=== PATIENT | female | born 1985 | race Caucasian/White ===

== ENCOUNTER 2019-09-30 04:04 | Outpatient (CLI) | payer BC ==
[2019-09-30 04:35] LABS: APPEARANCE,URINE CLEAR; BILIRUBIN,URINE NEGATIVE (NEGATIVE); COLOR,URINE YELLOW; GLUCOSE, URINE NEGATIVE (NEGATIVE); KETONES,URINE NEGATIVE (NEGATIVE); LEUKOCYTE ESTERASE,URINE SMALL (NEGATIVE); NITRITE,URINE NEGATIVE (NEGATIVE); PROTEIN,URINE NEGATIVE (NEGATIVE); URINE SPECIFIC GRAVITY 1.008; UROBILINOGEN,URINE NEGATIVE mg/dL (<2.0)
[2019-09-30 04:50] LABS: URINE AMPHETAMINES SCREEN NEGATIVE; URINE BARBITURATES SCREEN NEGATIVE; URINE BENZODIAZEPINES SCREEN NEGATIVE; URINE COCAINE SCREEN NEGATIVE; URINE MARIJUANA (THC) SCREEN NEGATIVE; URINE METHADONE SCREEN NEGATIVE; URINE PHENCYCLIDINE SCREEN NEGATIVE
--- NOTE | 2019-09-30 06:31 | Non Stress Test Report ---
Non Stress Test Datetime Report Generated by CPN: 09/30/2019 06:31 DEMOGRAPHIC EGA NST: 40.4 INDICATION Indication for Study (NST) Other: LC- ctx MONITORING Monitor Explained: Monitor Explained; Test Explained; Patient Verbalized Understanding Time on Monitor: 09/30/2019 04:20 Time off Monitor: 09/30/2019 04:52 NST Duration: 32 NST INTERVENTIONS NST Interventions: PO Hydration; Reposition Patient Physician Notified NST: Dr. De La Vega BABY A: [id number] BABY A Movement : Present Contraction Frequency : irregular FHR Baseline : 125 Accelerations : 15X15 Decelerations : None Variability : Moderate 6-25bpm NST Review: Meets Criteria for Reactive NST NST Review and Verified By : BRYCE Santiago Results: Reactive NST REPORT Report Trigger: Send Report
[2019-09-30] MEDS ORDERED: LIDOCAINE 1% INJ-PF (10 MG/ML) 30 ML SDV ONE (11:08)
[2019-09-30] MEDS ORDERED: OXYTOCIN 10 UNIT/ML VIAL ONE (11:08)
[2019-09-30] MEDS ORDERED: MISOPROSTOL 0.2 MG TABLET ONE (11:08)
[2019-09-30] MEDS ORDERED: OXYTOCIN/NORMAL SALINE 20 UNIT/1,000 ML RTUINJ ONE (11:09)
== END 2019-09-30 06:34 | disposition home or self-care (01) ==
LOC: LC 04:04
PROVIDERS: ATTEND Obstetrics & Gynecology Gynecology
PROC: 4A1HXCZ Monitoring of Products of Conception, Cardiac Rate, External Approach (ICD-10-PCS; principal; 2019-09-30)
DX: O48.0 Post-term pregnancy (principal); Z3A.40 40 weeks gestation of pregnancy
CPT/HCPCS: 59025; 81005; 80307; J3490; J2590 ×2

== ENCOUNTER 2019-09-30 10:50 | Inpatient (IN) | payer BC ==
--- NOTE | 2019-09-30 11:13 | Admission Physical ---
Datetime Report Generated by CPN: 09/30/2019 11:12 CURRENT ADMISSION Chief Complaint: Uterine Contractions Chief Complaint Other: contractions since 129 Indication for Induction: Not Applicable Admit Impression : Term, Intrauterine ; Active Labor Admit Plan: Admit to Unit; Initiate Labor Protocol Admit Plan- Other: was discharged this morning before 0700 with 2cm cx ALLERGIES Medication Allergies: No Medication Allergies: No Known Allergies (09/30/2019) Latex: No Latex Allergies Food Allergies: pineapple, melon OBSTETRICAL HISTORY EDC: 09/26/2019 00:00 : 1 Para: 0 Term: 0 : 0 SAB: 0 IAB: 0 Ectopic: 0 Livin Cesareans: 0 VBACs: 0 Multiple Births: 0 SEE RECORDS Alcohol: No Marijuana : No Cocaine: No Other Illicit Drugs: No Cigarettes: Never Smoker. [id number] PHYSICAL EXAM General: Normal HEENT: Normal Neurologic: Normal Thyroid: Deferred Heart: Normal Lungs: Normal Breast: Deferred Back: Normal Abdomen: Normal Genitourinary Exam: Normal Extremities: Normal DTRs: Normal Pelvic Type: Adequate Vital Signs: Reviewed; Within Normal Limits VAGINAL EXAM Dilatation: 6 Effacement: 100 Station: -1 Contraction Comments: q 2-3 mins MEMBRANES Pooling: Negative Membranes: Intact FETUS A EGA: 40.4 Monitoring: External US FHR- Baseline: 140 Accelerations: 15X15 Decelerations: None Estimated Weight (gm): 3300 Presentation: Vertex Presentation- Other: vtx by SVE Admit Comment: at 40w4d in active labor. P: admit to L_D, anticipate PLANS FOR LABOR AND DELIVERY Pain Management: Medications; Epidural Feeding Preference: Breast Benefit of Breast Feed Discussed: Yes Circumcision: N/A INFORMED CONSENT Assignment: Ronda Delgado MD Signature: with User ID: [email or web address] : with User ID: [email or web address]
[2019-09-30] MEDS ORDERED: RINGERS SOLUTION,LACTATED 1,000 ML IV ONE (11:14)
[2019-09-30 11:50] LABS: ABSOLUTE LYMPHOCYTES (AUTO) 0.9 10^3/uL (0.5-4.7); ABSOLUTE MONOCYTES (AUTO) 0.4 10^3/uL (0.1-1.4); ABSOLUTE NEUT (AUTO) 15.3 10^3/uL (1.7-8.2); BASOPHILS % (AUTO) 0.2 % (0-2); HEMATOCRIT 33.1 % (36.0-47.0); HEMOGLOBIN 11.6 g/dL (12.0-15.5); LYMPHOCYTES % (AUTO) 5.5 % (13-45); MEAN CORPUSCULAR HEMOGLOBIN 29.4 pg (27.0-33.4); MEAN CORPUSCULAR HGB CONC 34.9 g/dL (32.0-36.0); MEAN CORPUSCULAR VOLUME 84 fl (80-97); MONOCYTES % (AUTO) 2.3 % (3-13); PLATELET COUNT 331 10^3/uL (150-450); RED BLOOD COUNT 3.93 10^6/uL (3.72-5.28); RED CELL DISTRIBUTION WIDTH 13.9 % (11.5-14.0); TOTAL CELLS COUNTED % (AUTO) 100 %; WHITE BLOOD COUNT 16.6 10^3/uL (4.0-10.5)
[2019-09-30] MEDS ORDERED: PHENYLEPHRINE HCL INJ/PF 10 MG/1 ML SDV ONE ×2 (12:08→22:30)
[2019-09-30] MEDS ORDERED: FENTANYL CITRATE INJ/PF 100 MCG/2 ML AMPUL ONE ×3 (12:09→23:14)
[2019-09-30] MEDS ORDERED: BUPIVACAINE HCL 0.25 % INJ/PF (2.5 MG/1 ML) 30 ML VIAL ONE (12:09)
[2019-09-30] MEDS ORDERED: FENTANYL/BUPIVACAINE/NS/PF 300 MCG/150 ML RTUINJ EPI ONE (12:09)
[2019-09-30] MEDS ORDERED: EPHEDRINE SULFATE INJ 50 MG/1 ML AMPULE ONE (12:09)
--- NOTE | 2019-09-30 14:32 | Warning Signs in Babies ---
VOD Warning Signs Datetime Report Generated by [facility]: 09/30/2019 14:32 VOD#608 -Warning Signs in Babies: Viewed with Parent(s)/Family (09/30/2019 14:30:Nikolai Sepulveda RN)
[2019-09-30] MEDS: RINGERS SOLUTION,LACTATED 1,000 ML IV PRN (18:03)
[2019-09-30] MEDS ORDERED: CEFTRIAXONE INJ 1000 MG VIAL ONE (20:06)
[2019-09-30] MEDS ORDERED: OXYTOCIN/NORMAL SALINE 20 UNIT/1,000 ML RTUINJ IV PRN ×2 (20:58→23:55)
[2019-09-30] MEDS ORDERED: AMPICILLIN SOD INJ 2 GM VIAL IV ONE (21:15)
[2019-09-30] MEDS ORDERED: ACETAMINOPHEN 325 MG TABLET PO ONE (21:16)
[2019-09-30] MEDS ORDERED: SODIUM BICARBONATE 4.2% INJ (2.5 MEQ/5 ML) VIAL ONE (22:22)
[2019-09-30] MEDS ORDERED: LIDOCAINE 2% INJ-PF (20 MG/ML) 10 ML AMPUL ONE (22:22)
[2019-09-30] MEDS ORDERED: AZITHROMYCIN INJ 500 MG VIAL IV ONE ×2 (22:23→22:25)
[2019-09-30] MEDS ORDERED: CITRIC ACID/SODIUM CITRATE ORAL SOLN 15 ML UDCUP ONE (22:23)
[2019-09-30] MEDS ORDERED: CITRIC ACID/SODIUM CITRATE ORAL SOLN 15 ML UDCUP PO ONE (22:25)
[2019-09-30] MEDS ORDERED: OXYTOCIN 10 UNIT/ML VIAL ONE (22:30)
[2019-09-30] MEDS ORDERED: MIDAZOLAM 2 MG/2 ML INJ ONE (22:30)
[2019-09-30] MEDS ORDERED: ONDANSETRON HCL INJ/PF 4 MG/2 ML SDV ONE (22:30)
[2019-09-30] MEDS ORDERED: PROPOFOL INJ 200 MG/20 ML VIAL IV ONE (23:20)
[2019-09-30] MEDS ORDERED: OXYTOCIN/NORMAL SALINE 20 UNIT/1,000 ML RTUINJ ONE (23:50)
--- NOTE | 2019-09-30 23:51 | Warning Signs in Babies ---
VOD Warning Signs Datetime Report Generated by N: 09/30/2019 23:50 VOD#608 -Warning Signs in Babies: Viewed with Parent(s)/Family (09/30/2019 23:45:Sarah Villarreal RN)
[2019-09-30] MEDS ORDERED: OXYCODONE-ACETAMINOPHEN 5-325 MG TABLET PO PRN (23:55)
[2019-09-30] MEDS ORDERED: ACETAMINOPHEN 325 MG TABLET PO PRN (23:55)
[2019-09-30] MEDS ORDERED: HYDROMORPHONE HCL INJ/PF 2 MG/ML AMPULE IV PRN (23:55)
[2019-09-30] MEDS ORDERED: MEASLES,MUMPS&RUBELLA VACC/PF 0.5 ML VIAL SUBCUT PRN (23:55)
[2019-09-30] MEDS ORDERED: PROMETHAZINE HCL INJ 25 MG/1 ML VIAL IV PRN (23:55)
[2019-09-30] MEDS ORDERED: DIPH/PERTUSS(ACELL)/TETANUS VAC/PF 0.5 ML SYR (>=10YO) IM PRN (23:55)
[2019-09-30] MEDS ORDERED: ACETAMINOPHEN 1,000 MG/100 ML RTUPB IV PRN (23:55)
[2019-10-01] MEDS ORDERED: FENTANYL CITRATE INJ/PF 100 MCG/2 ML AMPUL ONE (00:23)
[2019-10-01] MEDS ORDERED: KETOROLAC TROMETHAMINE INJ/PF 30 MG/1 ML SDV IV ONE (00:30)
[2019-10-01] MEDS ORDERED: KETOROLAC TROMETHAMINE INJ/PF 30 MG/1 ML SDV ONE (00:42)
[2019-10-01] MEDS ORDERED: ACETAMINOPHEN 1,000 MG/100 ML RTUPB IV ONE (00:49)
[2019-10-01] MEDS: OXYCODONE-ACETAMINOPHEN 5-325 MG TABLET PO PRN ×4 (02:41→21:31)
[2019-10-01] MEDS: KETOROLAC TROMETHAMINE INJ/PF 30 MG/1 ML SDV IV SCH ×3 (05:44→21:31)
[2019-10-01] MEDS: PRENATAL VITAMIN W DHA CAPSULE PO SCH (09:50)
[2019-10-01] MEDS: DOCUSATE SODIUM 100 MG CAPSULE PO SCH ×2 (09:50→17:30)
[2019-10-01] MEDS: SIMETHICONE 80 MG TAB.CHEW PO PRN ×2 (09:50→20:44)
[2019-10-01] MEDS: RINGERS SOLUTION,LACTATED 1,000 ML IV PRN ×2 (09:54→19:22)
--- NOTE | 2019-10-01 10:01 | Operative Report ---
Operative Report DATE OF SURGERY: 09/30/19 PREOPERATIVE DIAGNOSIS: Arrest of descent. Failure to progress in labor. Chor ioamnionitis. Cat 2 heart tracing POSTOPERATIVE DIAGNOSIS: Same as above. Occipute posterior OPERATION: Primary section SURGEON: VANNESA EDGE ANESTHESIA: Spinal TISSUE REMOVED OR ALTERED: Placenta COMPLICATIONS: None ESTIMATED BLOOD LOSS: 700 INTRAOPERATIVE FINDINGS: Uterus with two small fibroids less then 3 cm each. Bilateral fallopian tubes and ovaries apperar normal. Large amount of thick meconium stained fluid. presentation is occiput posterior. Viable female infant. Nuchal cord x 2. PROCEDURE: IV fluids: per anesthesia record Urinary output: 300 cc Findings: Uterus with two fibroids each less than 3 cm. Normal bilateral fallopian tubes and ovaries. Viable female Position: To recovery room in stable condition Description of procedure: The patient was taken to the operating room and general anesthesia was administered and found to be adequate. She was then placed on the OR table in the supine position with a slight leftward tilt. Patient was prepped and draped in usual sterile fashion. Azithromycin 500mg was given IV prior to the procedure for infection prophylaxis . Timeout was taken. A Pfannenstiel skin incision was then made approximately 3 cm above the pubic symphysis and carried down to level the rectus fascia. The rectus fascia was then nicked in the midline with a scalpel and the fascial incision was extended laterally with use of curved Apodaca scissors. The rectus fascia was then grasped with 2 Kocker clamps elevated and the underlying rectus muscle was dissected off both bluntly and sharply. Any bleeding controlled with cautery. The rectus muscles were then split in the midline and the peritoneum was entered. The peritoneal incision was then extended by manually stretching the peritoneum. The bladder blade was positioned. The bladder was noted to be out of harm's way. A scalpel was then used in the lower uterine for the hysterotomy, slowly until amniotomy was obtained a large amount of meconium stained fluid was noted. The uterine incision was then manually stretched. The infant was noted to be in vertex postion -deep in the pelvis. Using a hand deep in pelvis, the head was elevated and brought to the hysterotomy incision. The head then delivered with some difficulty as infant was occiput posterior presentation deep in the pelvis. An assistant news director used a single hand to assist with elevation of the head from the pelvis from below the drape. Once the head was brought to the hysterotomy incision it delivered easily.. The shoulders and the rest of the body followed immediately. The cord was cut clamped and the infant was handed off to the nurse awaiting. Infant was crying prior to hand off. The placenta was manually delivered. Using a lap gauze the uterus was cleared of all clots and debris. The uterus was then exteriorized and a bladder blade was repositioned. The uterine incision was then closed with 0 Chromic suture in a running locked fashion. A second layer of the same suture was used in a running locked imbricated fashion. The uterine incision was inspected and noted to be hemostatic. The posterior aspect of the uterus was then inspected and anatomy was seen as above. The uterus was returned to its normal anatomic position within the abdominal cavity. Warm saline irrigation was used to clear all clots and debris from the abdomen. The uterine incision was inspected once more and noted to remain hemostatic. The bladder blade was removed and the peritoneum was closed with 2-0 chromic in a running fashion. The rectus muscles were then reapproximated and the rectus fascia was closed with a #1 PDS in a running fashion. The subcutaneous tissue was then inspected and any bleeding was controlled with Bovie electrocautery. The subcutaneous tissue was then closed with 2-0 Plain Gut suture in a running fashion. The skin was then closed with 4-0 Monocryl in a running subcuticular fashion. The skin incision was then clean dried and Dermabond was applied over the skin incision. All instrument sponge and needle counts were correct x3 for the procedure the patient tolerated the procedure well. She will proceed to recovery room in stable condition
--- NOTE | 2019-10-01 10:14 | PDOC PROGRESS REPORT ---
Subjective-OB Progress Note for:: 10/01/19 Subjective: reports bleeding slowing, pain controlled with current meds, denies needs. not passing gas Physical Exam (OB) Vital Signs: Temp Pulse Resp BP Pulse Ox 98.3 F 73 16 94/42 L 95 10/01/19 08:05 10/01/19 08:05 10/01/19 08:05 10/01/19 08:05 10/01/19 08:05 Intake & Output 09/30/19 10/01/19 10/02/19 06:59 06:59 06:59 Intake Total 1270 Balance 1270 Weight 98.3 kg - Incision: Open, Well Approximated Closure Type: Surgical Glue - Abdomen Description: Tender, Soft Hernia Present: No Bowel Sounds: Hypoactive Fundal Description: Firm, Midline Fundal Height: u/u - u/2 - Extremities Lower extremities: Rosalba's sign - neg Calf: Normal, Nontender Objective-Diagnostic Laboratory: 09/30/19 11:32 09/30/19 09/30/19 11:32 11:32 WBC 16.6 H RBC 3.93 Hgb 11.6 L Hct 33.1 L MCV 84 MCH 29.4 MCHC 34.9 RDW 13.9 Plt Count 331 Seg Neutrophils % 92.0 H Blood Type B POSITIVE Antibody Screen NEGATIVE Assessment and Plan(PN) - Assessment and Plan (1) Active labor at term Is this a current diagnosis for this admission?: Yes (2) Arrest of descent, delivered, current hospitalization Is this a current diagnosis for this admission?: Yes (3) S/P primary low transverse Is this a current diagnosis for this admission?: Yes - Time Spent with Patient Time with patient: Less than 15 minutes - Disposition Anticipated Discharge: Home Within: within 48 hours
[2019-10-01 10:26] LABS: HEMATOCRIT 28.9 % (36.0-47.0); HEMOGLOBIN 9.7 g/dL (12.0-15.5); MEAN CORPUSCULAR HGB CONC 33.8 g/dL (32.0-36.0); MEAN CORPUSCULAR VOLUME 86 fl (80-97); PLATELET COUNT 255 10^3/uL (150-450); RED BLOOD COUNT 3.36 10^6/uL (3.72-5.28); RED CELL DISTRIBUTION WIDTH 14.7 % (11.5-14.0); WHITE BLOOD COUNT 21.9 10^3/uL (4.0-10.5)
[2019-10-01 10:51] LABS: ABSOLUTE LYMPHOCYTES# (MANUAL) 2.2 10^3/uL (0.5-4.7); ABSOLUTE MONOCYTES # (MANUAL) 1.1 10^3/uL (0.1-1.4); ANISOCYTOSIS SLIGHT; BAND NEUTROPHILS % (MANUAL) 2 % (3-5); BASOPHILS % (MANUAL) 0 % (0-2); EOSINOPHILS % (MANUAL) 0 % (0-6); LYMPHOCYTES % (MANUAL) 10 % (13-45); MONOCYTES % (MANUAL) 5 % (3-13); PLATELET COMMENT ADEQUATE; POIKILOCYTOSIS SLIGHT; SEGMENTED NEUTROPHILS % (MAN) 83 % (42-78); TEAR DROP CELLS SLIGHT; TOTAL CELLS COUNTED 100; TOXIC GRANULATION SLIGHT
[2019-10-01] MEDS ORDERED: AMPICILLIN SOD INJ 2 GM VIAL IV SCH (12:15)
[2019-10-01] MEDS: AMPICILLIN SOD INJ 2 GM VIAL IM SCH (12:48)
[2019-10-01] MEDS: AMPICILLIN SODIUM 2 GM in NORMAL SALINE 100 ML IV SCH ×2 (17:49→23:12)
[2019-10-02] MEDS: IBUPROFEN 800 MG TABLET PO PRN ×2 (05:24→14:20)
[2019-10-02 08:08] LABS: HEMATOCRIT 27.3 % (36.0-47.0); HEMOGLOBIN 9.3 g/dL (12.0-15.5); MEAN CORPUSCULAR HEMOGLOBIN 29.3 pg (27.0-33.4); MEAN CORPUSCULAR HGB CONC 34.2 g/dL (32.0-36.0); MEAN CORPUSCULAR VOLUME 86 fl (80-97); PLATELET COUNT 283 10^3/uL (150-450); RED BLOOD COUNT 3.19 10^6/uL (3.72-5.28); RED CELL DISTRIBUTION WIDTH 14.6 % (11.5-14.0); WHITE BLOOD COUNT 15.3 10^3/uL (4.0-10.5)
--- NOTE | 2019-10-02 10:04 | PDOC DISCHARGE SUMMARY ---
Impression - Admit/DC Date/PCP Admission Date/Primary Care Provider: 09/30/19 11:14 JACK PETTIT MD Discharge Date: 10/02/19 - Discharge Diagnosis (1) Active labor at term Is this a current diagnosis for this admission?: Yes (2) Arrest of descent, delivered, current hospitalization Is this a current diagnosis for this admission?: Yes (3) S/P primary low transverse Is this a current diagnosis for this admission?: Yes - Additional Information Discharge Diet: Regular Discharge Activity: Balance Activity w/Rest, No Lifting Over 10 Pounds, No Lifting/Push/Pulling, Pelvic Rest, No tub bath Referrals: JACK PETTIT MD [Primary Care Provider] - Prescriptions: Norethindrone [Deblitane] 0.35 mg PO DAILY #90 tablet Ibuprofen [Motrin 800 mg Tablet] 800 mg PO Q8HP PRN #60 tablet PRN Reason: Oxycodone HCl/Acetaminophen [Percocet 5-325 mg Tablet] 1 tab PO Q4HP PRN #30 tablet PRN Reason: Home Medications: Prenat 115/Iron Fum/Folic/Dss [ 19 Tablet] 1 tab PO DAILY 09/30/19 Ibuprofen [Motrin 800 mg Tablet] 800 mg PO Q8HP PRN #60 tablet 10/02/19 Norethindrone [Deblitane] 0.35 mg PO DAILY #90 tablet 10/02/19 Oxycodone HCl/Acetaminophen [Percocet 5-325 mg Tablet] 1 tab PO Q4HP PRN #30 tablet 10/02/19 HPI Gestational Age: 40+4 Reason(s) for Admission: Onset of Labor Procedures: NST Intrapartum Procedure(s): : Low Cervical, Transverse Results Laboratory Results: WBC 15.3 10^3/uL (4.0-10.5) H 10/02/19 07:48 RBC 3.19 10^6/uL (3.72-5.28) L 10/02/19 07:48 Hgb 9.3 g/dL (12.0-15.5) L 10/02/19 07:48 Hct 27.3 % (36.0-47.0) L 10/02/19 07:48 MCV 86 fl (80-97) 10/02/19 07:48 MCH 29.3 pg (27.0-33.4) 10/02/19 07:48 MCHC 34.2 g/dL (32.0-36.0) 10/02/19 07:48 RDW 14.6 % (11.5-14.0) H 10/02/19 07:48 Plt Count 283 10^3/uL (150-450) 10/02/19 07:48 Lymph % (Auto) Not Reportable 10/01/19 09:10 [place] % (Auto) Not Reportable 10/01/19 09:10 Eos % (Auto) Not Reportable 10/01/19 09:10 Baso % (Auto) Not Reportable 10/01/19 09:10 Absolute Neuts (auto) Not Reportable 10/01/19 09:10 Absolute Lymphs (auto) Not Reportable 10/01/19 09:10 Absolute Monos (auto) Not Reportable 10/01/19 09:10 Absolute Eos (auto) Not Reportable 10/01/19 09:10 Absolute Basos (auto) Not Reportable 10/01/19 09:10 Total Counted 100 10/01/19 09:10 Seg Neutrophils % Not Reportable 10/01/19 09:10 Seg Neuts % (Manual) 83 % (42-78) H 10/01/19 09:10 Band Neutrophils % 2 % (3-5) L 10/01/19 09:10 Lymphocytes % (Manual) 10 % (13-45) L 10/01/19 09:10 Monocytes % (Manual) 5 % (3-13) 10/01/19 09:10 Eosinophils % (Manual) 0 % (0-6) 10/01/19 09:10 Basophils % (Manual) 0 % (0-2) 10/01/19 09:10 Abs Neuts (Manual) 18.6 10^3/uL (1.7-8.2) H 10/01/19 09:10 Abs Lymphs (Manual) 2.2 10^3/uL (0.5-4.7) 10/01/19 09:10 Abs Monocytes (Manual) 1.1 10^3/uL (0.1-1.4) 10/01/19 09:10 Absolute Eos (Manual) 0.0 10^3/uL (0.0-0.6) 10/01/19 09:10 Abs Basophils (Manual) 0.0 10^3/uL (0.0-0.2) 10/01/19 09:10 Toxic Granulation SLIGHT 10/01/19 09:10 Platelet Comment ADEQUATE 10/01/19 09:10 Poikilocytosis SLIGHT 10/01/19 09:10 Anisocytosis SLIGHT 10/01/19 09:10 Tear Drop Cells SLIGHT 10/01/19 09:10 Blood Type B POSITIVE 09/30/19 11:32 Antibody Screen NEGATIVE 09/30/19 11:32 Plan Plan of Treatment: start control 3 weeks post . return to [facility] in 4 weeks for post check
[2019-10-02] MEDS: DOCUSATE SODIUM 100 MG CAPSULE PO SCH ×2 (10:24→17:59)
[2019-10-02] MEDS: PRENATAL VITAMIN W DHA CAPSULE PO SCH (10:24)
[2019-10-02] MEDS: OXYCODONE-ACETAMINOPHEN 5-325 MG TABLET PO PRN (10:25)
[2019-10-02 15:32] VITALS: BP 118/54
--- NOTE | 2019-10-04 15:21 | Delivery Summary ---
Del Sum A-C Datetime Report Generated by CPN: 10/04/2019 15:21 DELIVERY PERSONNEL DELIVERY PERSONNEL: [id number] Delivery Doctor:: Ronda Delgado MD SUPERVISOR FARM EQUIPMENT MAINTENANCE:: Sebastian Tabor CRNA Automotive Quality Manager:: Sarah Villarreal RN Neonatal Nurse Practitioner:: ROSIBEL Christiansen Nursery Nurse:: Lubna Tejeda RN Supervisor/NITROGLYCERIN NITRATOR OPERATOR BATCH: [facility] [place] Supervisor/NITROGLYCERIN NITRATOR OPERATOR BATCH: Rocio Adame ST MATERNAL INFORMATION Delivery Anesthesia: Epidural Medications After Delivery: Pitocin Bolus-Please Comment Delivery QBL: 760 Maternal Complications: Chorioamnionitis; Maternal Fever LABOR SUMMARY EDC: 09/26/2019 00:00 No. Babies in Womb: 1 Attempted: No Labor Anesthesia: Epidural LABOR INFORMATION Reason for Induction: Not Applicable Onset of Labor: 09/30/2019 11:02 Complete Dilatation: 09/30/2019 18:31 Oxytocin: Augmentation Group B Beta Strep: negative Antibiotics # of Doses: 0 Steroids Given: None Reason Steroids Not Administered: Not Applicable MEMBRANES Membranes Rupture Method: Artificial Rupture of Membranes: 09/30/2019 13:03 Length of Rupture (hr): 9.97 Amniotic Fluid Color: Light Meconium Amniotic Fluid Amount: Small Amniotic Fluid Odor: Normal STAGES OF LABOR Stage 1 hr: 7 Stage 1 min: 29 Stage 2 hr: 4 Stage 2 min: 30 Stage 3 hr: 0 Stage 3 min: 2 Total Time in Labor hr: 12 Total Time in Labor min: 1 CSECTION DELIVERY Primary Indication: Arrest of Descent Secondary Indication: Other Other Secondary Indication: chorio CSection Urgency: Non-Scheduled CSection Incidence: Primary Labor: Labor Elective: Nonelective CSection Incision: Lower Uterine Transverse BABY A INFORMATION Delivery Date/Time: 09/30/2019 23:01 Method of Delivery: Nurse Controlled Delivery: No Born in Route : No : N/A Forceps: N/A Vacuum Extraction: N/A Shoulder Dystocia : No PRESENTATION/POSITION BABY A Presentation: Cephalic Cephalic Presentation: Vertex Vertex Position: Left Occipital Anterior Breech Presentation: N/A PLACENTA INFORMATION BABY A Placenta Delivery Time : 09/30/2019 23:03 Placenta Method of Delivery: Spontaneous Placenta Status: Delivered SCORES BABY A Heart Rate 1 min: >100 bpm Resp Effort 1 min: Good Cry Reflex Irritability 1 min: Cough or Sneeze or Pulls Away Muscle Tone 1 min: Some Flexion of Extremities Color 1 min: Body [place], Extremities Blue Resuscitation Effort 1 min: Tactile Stimulation SCORE 1 MIN: 8 Heart Rate 5 min: >100 bpm Resp Effort 5 min: Good Cry Reflex Irritability 5 min: Cough or Sneeze or Pulls Away Muscle Tone 5 min: Active Motion Color 5 min: Body Herlong, Extremities Blue Resuscitation Effort 5 min: Tactile Stimulation SCORE 5 MIN: 9 INFANT INFORMATION BABY A Gestational Age at Delivery: 40.4 Gestational Status: Full Term- 39- 40.6 Weeks Outcome : Liveborn Condition : Stable Infant Sex: Female IDENTIFICATION BABY A Verification Date/Time: 09/30/2019 23:22 ID Band Number: [id number] Mother's Name Verified: Yes RN Verifying Infant: Chalman, A. RN Additional Verifying Personnel: Zuri Mchugh RN WEIGHT/LENGTH BABY A Infant Birthweight (gm): 3480 Weight (lb): 7 Weight (oz): 11 Infant Length (in): 21.00 Infant Length (cm): 53.34 CORD INFORMATION BABY A No. Cord Vessels: 3 Nuchal Cord : Around Neck x2, Loose Cord Blood Taken: Yes-For Storage (Mom's Blood type +) Suction: Mouth; Nose ASSESSMENT BABY A Infant Complications: Multiple Late Decels; Multiple Variable Decels; Meconium Physical Findings at Delivery: Within Normal Limits Physical Findings- Other: see initial nursery assessment Infant Respirations: Appears Normal Skin to Skin: Yes Skin to Skin: Yes Skin to Skin: Yes Skin to Skin: Yes Skin to Skin: Yes Skin to Skin: Yes Skin to Skin: Yes Toll Relief Operator/ALS Called : Yes Infant Care By: Ayleen Tejeda Transferred To: [facility] SIGNATURES : I was personally available for consultation and serving as supervising physician for the MLP.
== END 2019-10-02 20:04 | disposition home or self-care (01) | DRG 786 ==
LOC: LC 10:50 → LR 11:14 → 2S 10-01 01:50
PROVIDERS: ADMIT Obstetrics & Gynecology; ATTEND Obstetrics & Gynecology
PROC: 10D00Z1 Extraction of Products of Conception, Low, Open Approach (ICD-10-PCS; principal; 2019-09-30)
DX: O32.4XX0 Maternal care for high head at term, not applicable or unspecified (principal); O41.1230 Chorioamnionitis, third trimester, not applicable or unspecified; O76 Abnormality in fetal heart rate and rhythm complicating labor and delivery; O34.13 Maternal care for benign tumor of corpus uteri, third trimester; D25.9 Leiomyoma of uterus, unspecified; O77.0 Labor and delivery complicated by meconium in amniotic fluid; O69.81X0 Labor and delivery complicated by cord around neck, without compression, not applicable or unspecified; O64.0XX0 Obstructed labor due to incomplete rotation of fetal head, not applicable or unspecified; Z91.018 Allergy to other foods; Z28.21 Immunization not carried out because of patient refusal; Z3A.40 40 weeks gestation of pregnancy; Z37.0 Single live birth
CPT/HCPCS: 1961; 36415; 85025; 85027; 86592; 86850; 86900; 86901; 88307; 94760; 94799; J0131; J0290; J0456; J0696; J1885; J2250; J2370; J2405; J2590; J2704; J3010; J3490; J7050; J7120